=== PATIENT | male | born 1955 | race Caucasian/White ===

== ENCOUNTER 2018-01-05 12:10 | Day surgery (SDC) | payer BC ==
[2018-01-05 12:37] VITALS: BMI 27.6
[2018-01-05 13:02] LABS: BASO % 0.3 % (0.0-2.0); EOS # 0.1 K/uL (0.0-0.7); EOS % 1.4 % (0.0-4.0); LYMPH # 2.8 K/uL (1.0-4.3); LYMPH % 32.8 % (20.0-40.0); MEAN CELL VOLUME 88.3 fL (80.0-94.0); MEAN CORPUSCULAR HEMOGLOBIN 30.9 pg (27.0-31.0); MEAN PLATELET VOLUME 8.6 fL (7.2-11.7); MONO # 0.7 K/uL (0.0-0.8); MONO % 8.2 % (0.0-10.0); NEUT # 4.8 K/uL (1.8-7.0); NEUT % 57.3 % (50.0-75.0); NRBC % 0.1 % (0.0-2.0); RBC 5.18 Mil/uL (4.40-5.90); RED CELL DISTRIBUTION WIDTH 13.9 % (11.5-14.5); WHITE BLOOD COUNT 8.4 K/uL (4.8-10.8)
[2018-01-05 13:09] LABS: PROTHROMBIN TIME 11.6 SECONDS (9.7-12.2)
[2018-01-05] MEDS ORDERED: Iodixanol 320 MG/ML 100 ML BOTTLE IV ONE ×3 (15:17→16:28)
[2018-01-05] MEDS ORDERED: Midazolam 2 MG/2 ML VIAL ONE (15:18)
[2018-01-05] MEDS ORDERED: Lidocaine 4% (Laryng-O-Jet) Kit MM ONE (15:20)
[2018-01-05] MEDS ORDERED: Nitroglycerin 50mg in D5W 50 MG/250 ML BOTTLE IV ONE (15:21)
[2018-01-05] MEDS ORDERED: Verapamil 0 ML ONE (15:22)
[2018-01-05] MEDS ORDERED: Verapamil 2 ML ONE (16:05)
--- NOTE | 2018-01-06 11:22 | CARD ---
APPROVED REPORT EKG Measurement Heart [id number] NJ [id number]-[id number] <Conclusion> Normal sinus rhythm Nonspecific intraventricular block T wave abnormality, consider lateral ischemia. poss recent anterior mi. Abnormal ECG
--- NOTE | 2018-01-11 08:06 | CARDCATH ---
PROCEDURE DATE: 01/05/2018 PROCEDURES: 1. Left heart catheterization. 2. Coronary angiogram. 3. Saphenous vein graft angiogram. 4. CASTLE angiogram. 5. Abdominal aortic root angiogram. 6. Ascending aortic root angiogram. CLINICAL INDICATIONS: 1. Angina. 2. Abnormal stress test. 3. Hypertension. 4. Hyperlipidemia. 5. Peripheral artery disease. 6. History of coronary artery disease, status post CABG. 7. History of abdominal aortic aneurysm. PERFORMING PHYSICIAN: Ranjit Cormier MD PROCEDURE: After informed consent, the patient was prepped and draped in the usual sterile fashion. A 2% lidocaine was given in the right groin for local anesthesia. Using micropuncture technique, 6-Cambodian sheath was introduced into right common femoral artery. A JL4 6-Cambodian diagnostic catheter was engaged into left main coronary artery. Contrast injected and left coronary angiogram was performed. Then a JR4 6-Cambodian diagnostic catheter was crossed into left ventricle. LV end-diastolic pressure was measured. Contrast injected and LV angiogram was performed. Then the catheter was pulled back across the aortic valve. Gradient across the aortic valve was measured. Then the same catheter was engaged into the right coronary artery. Contrast injected and right coronary angiogram was performed. Using the CASTLE catheter, CASTLE graft angiogram was performed. Saphenous vein grafts could not be found. Using pigtail catheter, ascending root angiogram was performed. The patient has a history of AAA. Using the pigtail catheter, abdominal aortic root angiogram was performed. The patient tolerated the procedure well. FINDINGS: 1. Left main coronary artery is patent. 2. Proximal LAD is 100% occluded. 3. Left circumflex and obtuse marginal branches are patent. 4. Right coronary artery is a dominant system. Right coronary artery is ectatic. Mid to distal right coronary artery has multiple 99% stenotic lesions. 5. LV ejection fraction is approximately 20%. Dilated ischemic cardiomyopathy. Severe global hypokinesis. 6. Saphenous vein grafts are totally occluded. 7. CASTLE graft is 100% occluded. CONCLUSION: 1. Severe ischemic dilated cardiomyopathy with ejection fraction of 20%. 2. All the grafts are 100% occluded. 3. Recommend minto right coronary artery intervention. Ranjit Cormier MD
== END 2018-01-05 21:30 | disposition home or self-care (01) ==
LOC: C.CATHLAB 12:10
PROVIDERS: ATTEND Internal Medicine Cardiovascular Disease
DX: I25.709 Atherosclerosis of coronary artery bypass graft(s), unspecified, with unspecified angina pectoris (principal); R94.39 Abnormal result of other cardiovascular function study; Z95.1 Presence of aortocoronary bypass graft; I25.5 Ischemic cardiomyopathy; I73.9 Peripheral vascular disease, unspecified; I25.2 Old myocardial infarction; I10 Essential (primary) hypertension; E78.5 Hyperlipidemia, unspecified
CPT/HCPCS: 36415; 82948; 85025; 85610; 85730; 93005; 93459; C1769; C1887; C1893; J1644; J2250; J3010; Q9967